=== PATIENT | female | born 1985 ===

== ENCOUNTER 2016-12-28 12:22 | Emergency (ER) | payer OTHER ==
[2016-12-28 12:58] VITALS: BP 144/84; PULSE 78; RESP 20; TEMP 98.1; O2SAT 100
--- NOTE | 2016-12-28 13:41 | ED PDOC ---
Lower Extremity Pain/Injury Time Seen by Provider: 12/28/16 13:22 Chief Complaint (Nursing): Lower Extremity Problem/Injury Chief Complaint (Provider): Right Ankle Pain/Injury History Per: Patient History/Exam Limitations: no limitations Onset/Duration Of Symptoms: Hrs (just prior to arrival) Current Symptoms Are (Timing): Still Present Severity: Moderate Additional Complaint(s): Zenobia Escobar is a 31 year old female, with no pertinent past medical history, who presents to the ED on 12/28/16 for the evaluation of a moderate amount of right ankle pain after having twisted it when she missed a step as she was coming down from atop a stool just prior to arrival. Denies numbness/tingling. Has taken no analgesics prior to arrival. PMD: [facility] Past Medical History Reviewed: Historical Data, Nursing Documentation, Vital Signs Vital Signs: Last Vital Signs Temp 98.1 F 12/28/16 12:56 Pulse 78 12/28/16 12:56 Resp 20 12/28/16 12:56 BP 144/84 12/28/16 12:56 Pulse Ox 100 12/28/16 12:56 - Medical History PMH: No Chronic Diseases - Surgical History Surgical History: No Surg Hx - Family History Family History: States: Unknown Family Hx - Allergies Allergies/Adverse Reactions: Allergies Allergy/AdvReac Type Severity Reaction Status Date / Time No Known Allergies Allergy Verified 12/28/16 12:55 Review of Systems Musculoskeletal: Positive for: Leg Pain (right ankle) Neurological: Negative for: Numbness (no tingling) Physical Exam - Reviewed Nursing Documentation Reviewed: Yes Vital Signs Reviewed: Yes - Physical Exam Appears: Positive for: Non-toxic, No Acute Distress Extremity: Positive for: Tenderness (over right lateral malleolus; no fibular head, dorsal foot or plantar surface tenderness), Capillary Refill (<2 seconds, skin intact), Swelling (right lateral malleolus). Negative for: Normal ROM ( decreased ROM of right ankle secondary to pain), Deformity Neurologic/Psych: Positive for: Alert, Oriented. Negative for: Motor/Sensory Deficits - ECG O2 Sat by Pulse Oximetry: 100 (RA) Pulse Ox Interpretation: Normal - Other Rad XR Right Ankle X-Ray: Viewed By Me, Read By Radiologist X-Ray Interpretation: no evidence of acute displaced fx/dis, mild lateral soft tissue swelling Medical Decision Making Medical Decision Makin:22 Initial Impression: ankle injury; r/o fracture Initial Plan: * XR Right Ankle (3 Views) Ice applied. 14:09 XR report reviewed: no evidence of acute displaced fracture nor dislocation, mild lateral soft tissue swelling. Aircast will be applied for patient comfort, see procedure note for additional details. 14:14 Patient is medically stable and requires no further treatment in the ED at this time. Patient will be discharged home instructions to take NSAIDs as needed for relief of pain. RICE instructions also given. Counseling was provided and all questions were answered regarding diagnosis and need for follow up with the referred podiatry clinic. There is agreement to discharge plan. Return if symptoms persist or worsen. Clinical Impression: ankle injury Scribe Attestation: Documented by Samia Rhodes, acting as a scribe for Sara Bee PA-C. Provider Scribe Attestation: All medical record entries made by the Scribe were at my direction and personally dictated by me. I have reviewed the chart and agree that the record accurately reflects my personal performance of the history, physical exam, medical decision making, and the department course for this patient. I have also personally directed, reviewed, and agree with the discharge instructions and disposition. Procedures - Time-Out Type of Procedure: Splint Site of Procedure: Right Ankle Correct Patient (with visual ID + MR# on ID Band): Yes Correct Procedure: Yes Correct Site Marked: Yes - Splinting Location: Right Ankle Pre-Made Type: aircast Pre-Proc Neuro Vasc Exam: normal Post-Proc Neuro Vasc Exam: normal Progress: Good placement, neurovascular status remains intact, patient tolerated procedure well with no immediate complications. Disposition - Clinical Impression Clinical Impression: Ankle injury - Patient ED Disposition Is Patient to be Admitted: No Counseled Patient/Family Regarding: Studies Performed, Diagnosis, Need For Followup - Disposition Referrals: Podiatry Clinic [Outside] Disposition: Routine/Home Disposition Time: 14:14 Condition: STABLE Instructions: Ankle Sprain (ED), Ankle Exercises (GEN) Print Language: EQUATORIAL GUINEAN
--- NOTE | 2016-12-28 14:11 | RAD ---
PROCEDURE: Right Wrist Radiographs. HISTORY: injury COMPARISON: None. FINDINGS: BONES: No evidence of acute displaced fracture nor dislocation. Talar dome appears intact. JOINTS: Ankle mortise maintained. . SOFT TISSUES: There is mild soft tissue swelling overlying the lateral malleolus. OTHER FINDINGS: None. IMPRESSION: No evidence of acute displaced fracture nor dislocation. Mild lateral soft tissue swelling.
== END 2016-12-28 14:38 | disposition home or self-care (01) ==
LOC: H.ER 12:22
DX: S99.911A Unspecified injury of right ankle, initial encounter (principal); X50.1XXA Overexertion from prolonged static or awkward postures, initial encounter; Y92.89 Other specified places as the place of occurrence of the external cause